=== PATIENT | male | born 1975 | race Hispanic/Latino ===

== ENCOUNTER → 2017-07-03 | Outpatient (CLI) | payer OTHER ==
--- NOTE | 2017-07-03 10:08 | REP ---
CHEST X-RAY PA AND LATERAL: 07/03/2017 CLINICAL HISTORY: Positive Quantiferon test. FINDINGS: No prior study. Two-view show the lungs well inflated. There is no pleural effusion, lateral pleural thickening, acute infiltrate, pleural thickening or parenchymal mass. The heart and mediastinal and hilar contours are normal. Airway intact. Bony thorax shows no focal lesion. The aorta is unremarkable. No free air under the diaphragm. IMPRESSION: 1. No acute cardiopulmonary disease. Signed by Emil Shay MD 07/03/2017 03:51 P
== END ==
LOC: M RAD 08:55
PROVIDERS: ATTEND Surgery
DX: R76.12 Nonspecific reaction to cell mediated immunity measurement of gamma interferon antigen response without active tuberculosis (principal)